=== PATIENT | male | born 1960 | race Caucasian/White ===

== ENCOUNTER → 2021-05-30 11:38 | Outpatient (CLI) | payer BC, SELFPAY ==
[2021-05-30 19:13] LABS: BUN Creatinine Ratio 28.2 (6-22); Blood Urea Nitrogen 22 mg/dL (9-20); Calcium 9.5 mg/dL (8.4-10.2); Carbon Dioxide 28 mmol/L (22-32); Chloride 103 mmol/L (98-107); Estimated Glomerular Filt Rate > 60.0 mL/min (>60); Glucose 89 mg/dL (80-110); HEMOLYSIS < 15 (0-50); Potassium 4.5 mmol/L (3.4-5.1); Sodium 137 mmol/L (137-145)
[2021-05-30 19:14] LABS: Add Manual Diff / Slide Review NO; Basophils Absolute Auto 0 /uL (0-100); Basophils Percent Auto 0.6 % (0-2); Eosinophils Absolute Auto 200 /uL (0-450); Eosinophils Percent Auto 4.4 % (2-4); Hematocrit 42.1 % (41-53); Hemoglobin 14.2 g/dL (13.5-17.5); Lymphocytes Absolute Auto 1000 /uL (1100-4500); Lymphocytes Percent Auto 26.5 % (25-40); Mean Corpuscular HGB Conc 33.8 % (30-36); Mean Corpuscular Hemoglobin 34.5 PG (26-34); Mean Corpuscular Volume 102.2 fL (80-100); Monocytes Absolute Auto 500 /uL (0-900); Monocytes Percent Auto 13.8 % (3-14); Neutrophils Absolute Auto 2000 /uL (1500-7000); Neutrophils Percent Auto 54.7 % (50-75); Platelet Count 258 X10^3/uL (150-400); Red Blood Cell Count 4.12 X10^6/uL (4.5-5.9); Red Cell Distribution Width 14.4 % (11.6-14.8); White Blood Cell Count 3.6 X10^3/uL (4.5-11.0)
== END ==
PROVIDERS: Visit Provider Orthopaedic Surgery Foot and Ankle Surgery
DX: Z01.818 Encounter for other preprocedural examination (principal)
CPT/HCPCS: 80048; 85025

== ENCOUNTER → 2021-07-11 09:17 | Outpatient (CLI) | payer BC, SELFPAY ==
--- NOTE | 2021-07-11 | DI.MRI.S_ITS ---
PROCEDURE: MR KNEE LT WO CON INDICATIONS: Unilateral primary osteoarthritis, left knee TECHNIQUE: Noncontrast sagittal PD fast spin echo and T2 fast spin echo with fat saturation, sagittal 3-D FLASH with fat saturation; coronal T1 spin echo and PD fast spin echo with fat saturation, and axial PD fast spin echo with fat saturation through the knee. COMPARISON: [facility], CR, XR KNEE 4+ VIEWS LEFT, 05/09/2021, 11:19. FINDINGS: Image quality: Excellent. Menisci: Medial extrusion of the medial meniscus. Linear oblique and amorphous high signal intensity within the anterior horn, body, and posterior horn medial meniscus is present demonstrating superior and inferior articular surface extension, indicating complex tearing. Lateral meniscus is intact. Cruciate ligaments: The anterior and posterior cruciate ligaments appear intact. Medial structures: The medial collateral ligament appears intact. Visualized portions of the pes anserinus tendons appear normal. No abnormal bursal fluid. Lateral structures: The lateral collateral ligament demonstrates mild T2 signal elevation at the femoral origin. The long and short heads of the biceps femoris tendon appear intact. The popliteus tendon appears normal. Iliotibial band appears normal. Anterior structures: Small amount of prepatellar fluid. The quadriceps and patellar tendons appear intact. There is mild T2 signal elevation within the quadriceps tendon at the patellar insertion site. There is enlargement of the popliteus tendon diffusely, worst at the patellar insertion site. Scattered small foci of high T2 signal intensity within the patellar tendon at the patellar insertion site, indicating partial thickness tears. Moderate ill-defined T2 signal elevation within the patellar tendon at the tibial insertion site, indicating patellar tendinitis. Patellar alignment is normal. No femoral trochlear dysplasia or ventral trochlear prominence. No edema in the infrapatellar fat pad. Bones and cartilage: No bone marrow contusions or fractures. There is mild ill-defined T2 signal elevation within the weight-bearing aspects of the medial femoral condyle and medial tibial plateau. Moderate tricompartmental periarticular osteophyte formation. Severe articular cartilage loss diffusely overlies the weight-bearing aspects of the medial femoral condyle and medial tibial plateau. Articular cartilage fibrillation overlies the lateral patellar facet. Focal region of moderate articular cartilage loss overlies the central femoral trochlea. Joint space: There is a small knee joint effusion and a trace Ivan's cyst. Normal appearing synovial plicae are incidentally noted. IMPRESSION: 1. Tricompartmental osteoarthritis with associated articular cartilage loss. 2. Quadriceps and patellar tendinopathy. Partial-thickness tearing of the patellar tendon. 3. Complex tearing of the medial meniscus. 4. Partial thickness tearing of the lateral collateral ligament. 5. Prepatellar bursitis. Dictated by: Slava Welch M.D. on 07/11/2021 at 11:54 Approved by: Slava Welch M.D. on 07/11/2021 at 11:57
== END ==
PROVIDERS: Referring Provider Orthopaedic Surgery; Visit Provider Orthopaedic Surgery
DX: M17.12 Unilateral primary osteoarthritis, left knee (principal); S76.112A Strain of left quadriceps muscle, fascia and tendon, initial encounter; S83.232A Complex tear of medial meniscus, current injury, left knee, initial encounter; S83.422A Sprain of lateral collateral ligament of left knee, initial encounter; M70.42 Prepatellar bursitis, left knee
CPT/HCPCS: 73721

== ENCOUNTER → 2023-04-17 10:05 | Outpatient (CLI) | payer BC, SELFPAY ==
[2023-04-17 20:30] LABS: Alanine Aminotransferase 43 IU/L (<50); Albumin 4.1 g/dL (3.5-5.0); Albumin Globulin Ratio 1.5 (1.0-2.8); Alkaline Phosphatase 123 U/L (38-126); Aspartate Aminotransferase 38 IU/L (17-59); BUN Creatinine Ratio 28.8 (6-22); Bilirubin Total 0.7 mg/dL (0.2-1.3); Blood Urea Nitrogen 23 mg/dL (9-20); Carbon Dioxide 25 mmol/L (22-32); Chloride 103 mmol/L (98-107); Cholesterol 180 mg/dL (140-199); Estimated Glomerular Filt Rate > 60 mL/min (>60); Globulin 2.8 g/dL (1.7-4.1); Glucose 99 mg/dL (80-110); HDL Cholesterol 44 mg/dL (40-60); HEMOLYSIS < 15 (0-50); LDL Cholesterol Calculated 125 mg/dL (<100); Potassium 4.3 mmol/L (3.4-5.1); Sodium 137 mmol/L (137-145); Total Protein 6.9 g/dL (6.3-8.2); Triglycerides 57 mg/dL (35-150)
[2023-04-17 20:49] LABS: Add Manual Diff / Slide Review NO; Basophils Absolute Auto 0 /uL (0-100); Basophils Percent Auto 0.5 % (0-2); Eosinophils Absolute Auto 100 /uL (0-450); Eosinophils Percent Auto 3.5 % (2-4); Hematocrit 39.5 % (41-53); Hemoglobin 13.5 g/dL (13.5-17.5); Lymphocytes Absolute Auto 900 /uL (1100-4500); Lymphocytes Percent Auto 25.1 % (25-40); Mean Corpuscular HGB Conc 34.3 % (30-36); Mean Corpuscular Hemoglobin 34.3 PG (26-34); Mean Corpuscular Volume 100.1 fL (80-100); Monocytes Absolute Auto 400 /uL (0-900); Monocytes Percent Auto 12.2 % (3-14); Neutrophils Absolute Auto 2000 /uL (1500-7000); Neutrophils Percent Auto 58.7 % (50-75); Platelet Count 240 X10^3/uL (150-400); Red Blood Cell Count 3.95 X10^6/uL (4.5-5.9); Red Cell Distribution Width 13.8 % (11.6-14.8); White Blood Cell Count 3.4 X10^3/uL (4.5-11.0)
[2023-04-17 20:51] LABS: Prostate Specific Antigen Scrn 0.906 ng/mL (0.1-4.0)
[2023-04-17 20:53] LABS: Testosterone 286 ng/dL (71.8-623)
[2023-04-17 20:55] LABS: TSH w/ Reflex to FT4 0.93 uIU/mL (0.47-4.68)
== END ==
PROVIDERS: PCP Family Medicine; Visit Provider Family Medicine
DX: F32.A Depression, unspecified (principal); R03.0 Elevated blood-pressure reading, without diagnosis of hypertension; R68.82 Decreased libido; Z12.5 Encounter for screening for malignant neoplasm of prostate; Z12.11 Encounter for screening for malignant neoplasm of colon
CPT/HCPCS: 80053; 80061; 84403; 84443; 85025; G0103

== ENCOUNTER → 2023-05-08 09:53 | Outpatient (CLI) | payer BC, SELFPAY ==
--- NOTE | 2023-05-08 09:54 | DI.US.S_ITS ---
PROCEDURE: US ABDOMEN LIMITED INDICATIONS: LIVER AND OTHER UNSPECIFIED BLOOD DISORDERS TECHNIQUE: Real-time scanning was performed of the abdominal and retroperitoneal organs, with image documentation. COMPARISON: None. FINDINGS: Liver: Mildly echogenic. Gallbladder: Unremarkable. Biliary ducts: Intrahepatic bile ducts are non-dilated. Extrahepatic bile duct caliber measures 4 mm. Normal is 6-7 mm or less in diameter, or 10 mm or less post-cholecystectomy. Pancreas: Obscured by bowel gas. Miscellaneous: No free abdominal fluid. IMPRESSION: Mildly echogenic liver, commonly caused by hepatic steatosis. Dictated by: Terry Gaona M.D. on 05/08/2023 at 11:44 Approved by: Terry Gaona M.D. on 05/08/2023 at 11:45
== END ==
PROVIDERS: PCP Family Medicine; Referring Provider Family Medicine; Visit Provider Family Medicine
DX: D75.89 Other specified diseases of blood and blood-forming organs (principal); R60.0 Localized edema; Z78.9 Other specified health status
CPT/HCPCS: 76705

== ENCOUNTER → 2023-05-15 11:13 | Outpatient (CLI) | payer BC, SELFPAY ==
[2023-05-15 19:37] LABS: Add Manual Diff / Slide Review NO; Basophils Absolute Auto 0 /uL (0-100); Basophils Percent Auto 0.5 % (0-2); Eosinophils Absolute Auto 100 /uL (0-450); Eosinophils Percent Auto 2.2 % (2-4); Hematocrit 40.6 % (41-53); Hemoglobin 14.2 g/dL (13.5-17.5); Lymphocytes Absolute Auto 1100 /uL (1100-4500); Lymphocytes Percent Auto 19.2 % (25-40); Mean Corpuscular Hemoglobin 34.8 PG (26-34); Mean Corpuscular Volume 99.5 fL (80-100); Monocytes Absolute Auto 600 /uL (0-900); Monocytes Percent Auto 9.9 % (3-14); Neutrophils Absolute Auto 3900 /uL (1500-7000); Neutrophils Percent Auto 68.2 % (50-75); Platelet Count 249 X10^3/uL (150-400); Red Blood Cell Count 4.08 X10^6/uL (4.5-5.9); Red Cell Distribution Width 13.7 % (11.6-14.8); White Blood Cell Count 5.8 X10^3/uL (4.5-11.0)
[2023-05-15 19:40] LABS: HEMOLYSIS < 15 (0-50); Iron 77 ug/dL (49-181)
[2023-05-15 19:51] LABS: Percent Iron Saturation 21 % (20-50); Total Iron Binding Capacity 375 ug/dL (261-462); Transferrin 275 mg/dL (206-381)
[2023-05-15 20:15] LABS: Ferritin 66 ng/mL (18-464)
[2023-05-15 20:47] LABS: Folate 13.9 ng/mL (2.76-20.0); Vitamin B12 Reflex MMA if <400 469 pg/mL (239-931)
== END ==
PROVIDERS: PCP Family Medicine; Visit Provider Family Medicine
DX: D64.9 Anemia, unspecified (principal); D72.810 Lymphocytopenia
CPT/HCPCS: 82607; 82728; 82746; 83540; 83550; 85025

== ENCOUNTER → 2023-07-09 09:20 | Outpatient (CLI) | payer BC, SELFPAY ==
[2023-07-09 19:36] LABS: Follicle Stimulating Hormone 6.87 mIU/mL; Luteinizing Hormone 3.25 mIU/mL
[2023-07-09 19:51] LABS: TSH w/ Reflex to FT4 1.21 uIU/mL (0.47-4.68)
[2023-07-09 19:54] LABS: Testosterone 376 ng/dL (71.8-623)
[2023-07-11 04:38] LABS: HBsAg Screen Negative (Negative); Hepatitis A Antibody IgM Negative (Negative); Hepatitis B Core Antibody IgM Negative (Negative); Hepatitis C Antibody Non Reactive (Non Reactive)
[2023-07-11 20:17] LABS: Free Kappa Lt Chains, Serum 18.7 mg/L (3.3-19.4); Free Lambda Lt Chains,Serum 14.8 mg/L (5.7-26.3)
[2023-07-12 05:18] LABS: Hepatitis B Surf Ab Qualitativ Non Reactive (.)
[2023-07-14 16:10] LABS: ANA Screen, IFA Negative (.)
[2023-07-15 15:08] LABS: Albumin 3.6 g/dL (2.9-4.4); Alpha-1-Globulin 0.2 g/dL (0.0-0.4); Alpha-2-Globulin 0.6 g/dL (0.4-1.0); Gamma Globulin 1.3 g/dL (0.4-1.8); Globulin Total 3.1 g/dL (2.2-3.9); Protein, Total 6.7 g/dL (6.0-8.5)
== END ==
PROVIDERS: PCP Family Medicine; Visit Provider Family Medicine
DX: K76.0 Fatty (change of) liver, not elsewhere classified (principal); R68.82 Decreased libido; Z78.9 Other specified health status; G62.9 Polyneuropathy, unspecified
CPT/HCPCS: 80074; 83001; 83002; 83883; 84155; 84165; 84403; 84443; 86038; 86706